=== PATIENT | female | born 1985 | race Hispanic/Latino ===

== ENCOUNTER 2022-06-17 18:33 | Emergency (ER) | payer OTHER, SELFPAY ==
[2022-06-17 18:46] VITALS: BP 147/92; PULSE 78; RESP 16; TEMP 36.9; O2SAT 99
--- NOTE | 2022-06-17 18:58 | ED.DIZZY ---
HPI - Dizziness General Chief Complaint: Dizziness Stated Complaint: Dizziness, weakness in body Time Seen by Provider: 06/17/22 18:59 Source: patient and RN notes reviewed Mode of arrival: ambulatory Limitations: no limitations History of Present Illness HPI Narrative: 36-year-old female presents to the [facility] with complaints of left-sided chest pain, generalized weakness, blurry vision, dizziness that was sudden onset at 4 PM today. Presented to the [facility] with . Offered to use an parts interpreter, patient declined wanted to use . Patient reports that its pressure in her left chest. Reports that the entire room is spinning. Gets worse with sitting up. Denies fevers or shortness of breath. Denies vomiting or abdominal pain. MD elicited complaint: dizziness Related Data Home Medications Medication Instructions Recorded Confirmed No Home Medications 06/17/22 06/17/22 Allergies Allergy/AdvReac Type Severity Reaction Status Date / Time No Known Allergies Allergy Verified 06/17/22 19:14 Review of Systems Review of Systems: All systems reviewed & are unremarkable except as noted in HPI and below Constitutional: Constitutional: Reports no additional constitutional complaints, Denies chills and Denies fever(s) Eyes: Eyes: Reports no additional eye complaints ENT: Reports system reviewed and no additional complaints, except as documented Cardiovascular: Cardiovascular: Reports as per HPI, Reports chest pain (Left-sided pressure) and Denies radiating jaw, neck or arm pain Respiratory: Respiratory: Reports no additional respiratory complaints Gastrointestinal: Gastrointestinal: Reports no additional gastrointestinal complaints Musculoskeletal: Musculoskeletal: Reports no additional musculoskeletal complaints Integumentary/Breasts: Skin/Breast: Reports system reviewed and no additional complaints, except as docu Neurologic: Reports as per HPI, Reports dizziness and Reports weakness (Generalized) Psychiatric: Psychiatric: Reports no additional psychiatric complaints Allergic/Immunologic: Allergic/Immunologic: Reports no additional allergic/immunologic complaints PMF Past Medical History Medical History (Updated 06/17/22 @ 19:24 by Riri Claire APRN) Patient denies medical problems Surgical History Surgical History (Updated 06/17/22 @ 19:18 by Riri Claire APRN) No pertinent past surgical history Social History Social History (Updated 06/17/22 @ 19:19 by Riri Claire APRN) Living arrangements: with family 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 There is no relevant family history pertinent to the patient complaint. Exam Const: General: healthy appearing, alert, uncomfortable and well groomed Nutritional Appearance: well nourished and obese Orientation/consciousness: patient oriented x3 Limitations: no limitations and language barrier (Offered parts interpreter, wanted to use ) HENMT: Head: normal to inspection Ears: external ears normal General nose exam: Normal external nose present Throat: posterior oropharynx normal Eyes: General: appearance normal, both eyes and all related structures Conjunctivae: conjunctivae normal Pupils: Equal, round and reactive pupils present Neck: Neck: normal visual inspection, no lymphadenopathy and no meningeal signs Chest: Chest palpation & inspection: normal inspection of the chest Resp: Effort & Inspection: normal respiratory effort and no use of accessory muscles Auscultation: clear to auscultation bilaterally, no crackles, no rales, no rhonchi and no wheezes Cardio: Rate: regular rate Rhythm: regular rhythm GI: GI Palp: Yes Soft to palpation and No Tenderness to palpation presen
--- NOTE | 2022-06-17 19:04 | ECG_ITS ---
Measurements Intervals [place] Rate: 78 P: 16 [place]: 141 QRS: 24 QRSD: 95 T: 25 QT: 388 QTc: 443 Interpretive Statements SINUS RHYTHM NO PREVIOUS ECG AVAILABLE FOR COMPARISON Electronically Signed On 06-18-2022 18:10:47 CDT by Kimberly Cheng M.D.
[2022-06-17 19:13] LABS: Glucose Point of Care 146 mg/dl (65-105)
== END 2022-06-17 19:16 | disposition short-term general hospital (02) ==
PROVIDERS: Emergency Provider Nurse Practitioner
DX: M54.6 Pain in thoracic spine (principal); R42 Dizziness and giddiness; H53.8 Other visual disturbances
CPT/HCPCS: 82948; 93005; 99203; G0463

== ENCOUNTER 2023-08-11 09:06 | Emergency (ER) | payer SELFPAY ==
--- NOTE | ~2023-08-11 | CT_ITS ---
Non-contrast CT scan of the Abdomen and Pelvis Clinical indication: Right flank pain Technique: 2.5 mm axial scans were obtained through the abdomen and pelvis without intravenous or or al contrast. Dose reduction technique was used on this scan by utilizing automated exposure control a nd iterative reconstruction technique. The dose-length product (DLP) was 757.71 mGy-cm. Findings: Images through the lung bases reveal no abnormalities. There is no evidence of renal or ureteral calculi. The kidneys and the ureters are nondilated. The liver, spleen, pancreas, gallbladder, and adrenals appear normal. There is no aortic aneurysm. There is no evidence of bowel obstruction. Small fat-containing umbilical hernia present. Images through the pelvis were performed. There is no evidence of ascites or lymphadenopathy. Urinary bladder unremarkable. No definite abnormal adnexal mass. Impression: Small fat-containing umbilical hernia, otherwise unremarkable exam. Reviewed, dictated and finalized at [facility]. Impression: Small fat-containing umbilical hernia, otherwise unremarkable exam.
[2023-08-11 09:11] VITALS: BP 120/97; PULSE 64; RESP 18; TEMP 36.4; O2SAT 97
--- NOTE | 2023-08-11 09:56 | PC.NURSE ---
Pt to CT scan via stretcher at this time.
[2023-08-11 10:20] LABS: Appearance Urine Clear (Clear); Bacteria Urine None Seen /hpf; Bilirubin Urine Negative (Negative); Blood Urine 3+ (Negative); Color Urine Yellow (Yellow); Glucose Urine UA Negative (Negative); Ketones Urine Negative (Negative); Leukocyte Esterase Ur Negative LEU/UL (Negative); Need Manual Microscopic Reviewed; Nitrate Urine Negative (Negative); Non Pathogenic Casts 0-2; Protein Urine Negative (Negative); Specific Grav Ur 1.018 (1.001-1.035); Squamous Epithelial Cell Urine Occasional /hpf (Few); Urobilinogen Urine 0.2 mg/dL (<2.0); WBC Urine 0-5 /hpf; pH Urine 7.5 (5.0-9.0)
[2023-08-11 10:21] LABS: Add Urine Microscopic? YES
--- NOTE | 2023-08-11 10:52 | ED.BACK ---
HPI - Back Pain/Injury General Chief Complaint: Back Pain/Injury Stated Complaint: back pain Time Seen by Provider: 08/11/23 09:14 History of Present Illness HPI Narrative: Patient with several days of right lower back pain that seems to radiate down to her lower abdomen and down her leg has tried some Tylenol with some improvement, lying for long time hurts, walking hurts. No focal numbness or weakness. No dysuria fever Related Data Allergies Allergy/AdvReac Type Severity Reaction Status Date / Time No Known Allergies Allergy Verified 08/11/23 09:14 Review of Systems Review of Systems: All systems reviewed & are unremarkable except as noted in HPI and below PMFSH Past Medical History Medical History (Updated 08/11/23 @ 10:54 by Brittney Jade MD) Patient denies medical problems Surgical History Surgical History (Updated 06/17/22 @ 19:18 by Riri Claire APRN) No pertinent past surgical history Social History Social History (Updated 06/17/22 @ 19:19 by Riri Claire APRN) Living arrangements: with family 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 EYES: EOMI, conjunctiva normal ENT: Hearing grossly intact LUNGS: Nonlabored breathing. HEART: [Regular rate and rhythm] ABD: [Soft], [nontender to palpation] EXT: Normal range of motion, no midline tenderness, normal gait SKIN: [No rashes or lesions.] NEURO: [Alert and oriented x 3. No gross focal sensory or strength deficits.] PSYCH: Normal affect Course Vital Signs Vital signs: Vital Signs Temperature 97.6 F 08/11/23 09:11 Pulse Rate 64 08/11/23 09:11 Respiratory Rate 18 08/11/23 09:11 Blood Pressure 120/97 H 08/11/23 09:11 Pulse Oximetry 97 08/11/23 09:11 Oxygen Delivery Room Air 08/11/23 09:11 Temperature 97.6 F 08/11/23 09:11 Pulse Rate 75 08/11/23 11:11 Respiratory Rate 15 08/11/23 11:11 Blood Pressure 136/86 08/11/23 11:11 Pulse Oximetry 100 08/11/23 11:11 Oxygen Delivery Room Air 08/11/23 09:11 MDM - Back Pain/Injury MDM Narrative Medical decision making narrative: ED COURSE AND MEDICAL DECISION MAKING: ? 37F with acute right-sided back pain. Normal motor and sensory exam. Patient able to ambulate. No evidence of acute cord compression, osteomyelitis/discitis or cauda equina without saddle anesthesia, urinary retention/incontinence, numbness/tingling in lower extremities, fever, history of IV drug use, cancer or immunosuppression. Doubt AAA or aortic dissection without severe pain/discomfort or any neurovascular deficits. I did also consider possible pyelonephritis or nephrolithiasis. [Ketorolac 30mg IM] given for symptomatic relief. CT shows no acute abnormality including normal appendix and no stones. On reevaluation, the symptoms are improved. Patient is able to rest more comfortably. Ambulating without difficulty. [I discussed management of acute back pain in detail, explaining the need to remain active and the goals of pain control.] Patient is given return precautions and instructed to come back at any point in time for worsening pain, fevers, weakness, difficulty walking, urinary or fecal incontinence. Patient expressed understanding of instructions. Lab Data Labs: Lab Results 08/11/23 Range/Units 09:50 Urine Color Yellow (Yellow) Urine Appearance Clear (Clear) Urine pH 7.5 (5.0-9.0) Ur Specific [place] 1.018 (1.001-1.035) Urine Protein Negative (Negative) mg/dL Urine Glucose (UA) Negative (Negative) mg/dL Urine Ketones Negative (Negative) mg/dL Ur Blood (Man) 3+ H (Negative) Urine Nitrate Negative (Negative) Urine Bilirubin Negative
[2023-08-11] MEDS: KETOROLAC 30 MG/ML VIAL (*BKC) IM (11:09)
[2023-08-11] MEDS: predniSONE 20 MG TABLET 40 MG PO (11:09)
[2023-08-11 11:11] VITALS: BP 136/86; PULSE 75; RESP 15; O2SAT 100
== END 2023-08-11 11:24 | disposition home or self-care (01) ==
PROVIDERS: Emergency Provider Emergency Medicine
DX: M54.41 Lumbago with sciatica, right side (principal)
CPT/HCPCS: 74176; 81001; 81025; 96372; 99284; J1885; J7512